=== PATIENT | male | born 1975 | race Caucasian/White ===

== ENCOUNTER 2018-01-17 13:45 | Emergency (ER) | payer MEDICAID, OTHER ==
[2018-01-17 15:04] LABS: ADD MAN DIFF? NO
[2018-01-17] MEDS: HYDROmorphONE 1 MG/ML SYG IV ×2 (15:06→16:16)
[2018-01-17] MEDS: ONDANSETRON 4 MG INJ IV ×2 (15:06→16:15)
[2018-01-17] MEDS: LEVETIRACETAM 1000 MG (PMX) 100 ML IVPB (15:06)
[2018-01-17] MEDS: SOD CHLORIDE 0.9% 1,000 ML IV (15:06)
[2018-01-17 15:08] LABS: BASOPHIL # 0.1 10^3/ul (0.0-0.1); BASOPHILS % 0.4 % (0.0-2.0); EOSINOPHILS # 0.1 10^3/ul (0.0-0.5); EOSINOPHILS % 0.4 % (0.0-7.0); HEMOGLOBIN 14.8 g/dl (14.0-18.0); LYMPHOCYTES # 0.9 10^3/ul (0.8-2.9); LYMPHOCYTES % 5.9 % (15.0-51.0); MEAN CORPUSCULAR HEMOGLOBIN 28.7 pg (29.0-33.0); MEAN CORPUSCULAR HGB CONC 34.4 g/dl (32.0-37.0); MEAN CORPUSCULAR VOLUME 83.5 fl (82.0-101.0); MEAN PLATELET VOLUME 8.9 fl (7.4-10.4); MONOCYTE # 0.7 10^3/ul (0.3-0.9); MONOCYTES % 4.6 % (0.0-11.0); NEUTROPHIL # 13.2 10^3/ul (1.6-7.5); NEUTROPHILS % 88.1 % (39.0-77.0); PLATELET COUNT 191 10^3/UL (140-415); RED BLOOD COUNT 5.15 10^6/ul (4.70-6.10); RED CELL DISTRIBUTION WIDTH 13.7 % (11.5-14.5)
[2018-01-17 15:27] LABS: ALANINE AMINOTRANSFERASE 55 IU/L (13-69); ALBUMIN/GLOBULIN RATIO 1.38; ALKALINE PHOSPHATASE 86 IU/L (42-121); ANION GAP 15 (5-13); ASPARTATE AMINO TRANSFERASE 77 IU/L (15-46); BILIRUBIN,INDIRECT 1.4 mg/dl (0-1.1); BILIRUBIN,TOTAL 1.4 mg/dl (0.2-1.3); BLOOD UREA NITROGEN 7 mg/dl (7-20); CALCIUM 9.8 mg/dl (8.4-10.2); CARBON DIOXIDE 23 mmol/L (21-31); CHLORIDE 96 mmol/L (97-110); CREATININE 1.01 mg/dl (0.61-1.24); Estimated GFR > 60 mL/min (>60); GLUCOSE 207 mg/dl (70-220); POTASSIUM 4.6 mmol/L (3.5-5.1); SODIUM 134 mmol/L (135-144); TOTAL PROTEIN 8.6 g/dl (6.1-8.1)
[2018-01-17 15:32] LABS: ETHANOL < 10.0 mg/dl
== END 2018-01-17 17:18 | disposition home or self-care (01) ==
LOC: E/R 13:45
DX: S42.292A Other displaced fracture of upper end of left humerus, initial encounter for closed fracture (principal); R56.9 Unspecified convulsions; X58.XXXA Exposure to other specified factors, initial encounter; Y92.9 Unspecified place or not applicable
CPT/HCPCS: 36415; 70450; 73030; 80053; 80307; 85025; 96374; 96375; 96376; 99285-25

== ENCOUNTER 2018-01-20 10:16 | Emergency (ER) | payer MEDICAID | END 2018-01-20 11:09 | disposition home or self-care (01) | LOC: FTE 10:16 | DX: S42.212D Unspecified displaced fracture of surgical neck of left humerus, subsequent encounter for fracture with routine healing (principal); W17.89XD Other fall from one level to another, subsequent encounter; Y92.9 Unspecified place or not applicable | CPT/HCPCS: 29105; 99282-25 ==